=== PATIENT | female | born 1985 | race Asian ===

== ENCOUNTER 2017-10-04 11:30 | Inpatient (IN) ==
[2017-10-04] MEDS ORDERED: Ondansetron 4 MG/2 ML VIAL IVP ONE (12:14)
[2017-10-04] MEDS ORDERED: 0.9 % Sodium Chloride 1,000 ML IVC ONE ×2 (12:14→13:58)
--- NOTE | 2017-10-04 12:15 | Emergency Department Note ---
Disposition Clinical Impression: Sepsis Qualifiers: Sepsis type: sepsis due to unspecified organism Qualified Code(s): A41.9 - Sepsis, unspecified organism UTI (urinary tract infection) Qualifiers: Urinary tract infection type: acute cystitis Hematuria presence: without hematuria Qualified Code(s): N30.00 - Acute cystitis without hematuria Disposition: Admitted As Inpatient Condition: Good Time of Disposition: 14:38 General Adult HPI - General Chief complaint: ED General Medical Stated complaint: fever, weakness, sore throat Time Seen by Provider: 10/04/17 11:51 Source: patient Mode of arrival: ambulatory Limitations: no limitations Nursing Notes Reviewed: Yes Vital Signs Reviewed: Yes - History of Present Illness HPI Narrative: 31-year-old with no significant past medical history presenting to the emergency Department chief complaint of myalgias and fever. Patient states for the past 2 days she has not been feeling well. She woke up this morning with severe diffuse myalgias. She had MAXIMUM TEMPERATURE of 104 at home. Patient did take Advil but did not help relieve her pain or temperature. Patient denies any cough, productive sputum, chest pain or shortness of breath. Denies any abdominal pain, vomiting or urinary symptoms. Patient denies any sick contacts. Pain Scale: 10 - Related Data Home Medications Medication Instructions Recorded Confirmed No Known Home Drugs 10/04/17 10/04/17 Allergies Allergy/AdvReac Type Severity Reaction Status Date / Time No Known Allergies Allergy Verified 10/04/17 14:06 All systems ED: reviewed and negative except as stated. Constitutional: Reports: fever Musculoskeletal: Reports: myalgia Past Medical History - Past Medical History Attestation: Yes The following information was validated with the patient. 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 Absent: scleral icterus, conjunctival injection - ENT ENT exam: mucous membranes dry - Neck Neck exam: Present: normal inspection, full ROM. Absent: tenderness, meningismus - Chest Chest inspection: Present: normal inspection, symmetric chest wall rise. Absent : tenderness, rash - Respiratory Respiratory exam: Present: normal lung sounds bilaterally. Absent: respiratory distress, wheezes - Cardiovascular Cardiovascular exam: Present: normal rhythm, tachycardia, normal heart sounds - Abdominal Exam Abdominal exam: Present: soft, Non-Tender. Absent: distention, guarding, rebound - Extremities Exam Extremities exam: Present: normal inspection, full ROM - Back Exam Back exam: Absent: CVA tenderness (R), CVA tenderness (L) - Neurological Exam Neurological exam: Present: alert, oriented X3 - Psychiatric Psychiatric exam: Present: normal affect, normal mood - Skin Skin exam: Present: warm, intact Course Course Narrative: 31-year-old female presenting to the emergency department with fever and myalgia. Patient's temperature 103 upon arrival. Patient tachycardic at 150 bpm. Other vital signs stable at this time. We will provide her with Tylenol, ibuprofen and complete basic laboratory analysis along with chest x-ray and influenza swab. Patient is alert and oriented 3 in the room. Disposition pending results. Patient agrees with this plan. - Reevaluation(s) Reevaluation #1: Patient's lab has resulted with increased white blood cell count and urinary tract infection. Patient heart rate decreasing well with 2 L of fluid. Patient is alert and oriented 3 in the room. Stable vital signs at this time. We will admit the patient at this time for urosepsis. We will start the patient on Rocephin. Patient agrees with this plan. I spoke with the hospice on-call Dr. Lui who agrees to accept the patient. Vital Signs Temperature 103 F H 10/04/17 11:33 Pulse Rate 150 10/04/17 11:33 Respiratory Rate 18 10/04/17 11:33 Blood Pressure 96/56 10/04/17 11:33 O2 Sat by Pulse Oximetry 97 10/04/17 11:33 Temperature 103 F H 10/04/17 11:33 Pulse Rate 121 10/04/17 13:35 Respiratory Rate 18 10/04/17 13:35 Blood Pressure 104/42 10/04/17 13:35 O2 Sat by Pulse Oximetry 99 10/04/17 13:35 Oxygen Delivery Oxygen Delivery Room Air Medical Decision Making - Lab Data Result diagrams: 10/04/17 12:14 10/04/17 12:14 Lab Results 10/04/17 10/04/17 10/04/17 Range/Units 12:05 12:05 12:14 WBC 17.9 H (4.3-11.1) K/mcL RBC 4.79 (3.82-4.97) M/mcL Hgb 13.3 (11.5-15.4) g/dL Hct 39.9 (35.3-44.9) % MCV 83.3 (83.0-100.0) fL MCH 27.8 L (28.0-33.3) pg MCHC 33.3 (31.6-35.5) g/dL RDW 12.5 (11.5-14.5) % Plt Count 334 (140-400) K/mcL MPV 9.6 (9.4-12.4) fL Immature Gran % 0.7 (0-4) % Seg Neutrophils % 81.9 % Lymphocytes % 11.4 % Monocytes % 5.6 % Eosinophils % 0.1 % Basophils % 0.3 % Neutrophils # 14.6 H (1.6-8.9) K/mcL Lymphocytes # 2.0 (0.6-4.6) K/mcL Monocytes # 1.0 (0.0-1.3) K/mcL Eosinophils # 0.0 (0.0-0.6) K/mcL Basophils # 0.1 (0.0-0.2) K/mcL Sodium (136-145) mEq/L Potassium (3.5-5.1) mEq/L Chloride (98-107) mEq/L Carbon Dioxide (23-29) mEq/L BUN (6-20) mg/dL Creatinine (0.60-1.20) mg/dL Est GFR ( Amer) (> 60) Est GFR (Non-Af Amer) (> 60) BUN/Creatinine Ratio (6-26) Glucose (70-105) mg/dL Calculated Osmolality (280-300) Calcium (8.6-10.3) mg/dL Urine Color Yellow (Yellow) Urine Clarity Cloudy A (Clear) Urine pH 6.0 (5.0-8.0) pH Units Ur Specific [place] 1.017 (1.010-1.025) Urine Protein Trace (Neg-Trace) mg/dL Urine Glucose (UA) Normal (Normal) mg/dL Urine Ketones Trace H (Negative) mg/dL Urine Blood Small H (Negative) Urine Nitrite Negative (Negative) Urine Bilirubin Negative (Negative) Urine Urobilinogen Normal (Normal) mg/dL Ur Leukocyte Esterase Large H (Negative) Urine Microscopic RBC 5-15 H (0-3) per hpf Urine Microscopic WBC TNTC H (0-3) per hpf Ur Squamous Epith Cells Many H (None-Few) per lpf Urine Bacteria None Seen (None-Few) per hpf Hyaline Casts None Seen (None-Few) per lpf Ur Culture Indicated? NO. (NO) Urine Test Negative (Negative) 10/04/17 Range/Units 12:14 WBC (4.3-11.1) K/mcL RBC (3.82-4.97) M/mcL Hgb (11.5-15.4) g/dL Hct (35.3-44.9) % MCV (83.0-100.0) fL MCH (28.0-33.3) pg MCHC (31.6-35.5) g/dL RDW (11.5-14.5) % Plt Count (140-400) K/mcL MPV (9.4-12.4) fL Immature Gran % (0-4) % Seg Neutrophils % % Lymphocytes % % Monocytes % % Eosinophils % % Basophils % % Neutrophils # (1.6-8.9) K/mcL Lymphocytes # (0.6-4.6) K/mcL Monocytes # (0.0-1.3) K/mcL Eosinophils # (0.0-0.6) K/mcL Basophils # (0.0-0.2) K/mcL Sodium 134 L (136-145) mEq/L Potassium 3.3 L (3.5-5.1) mEq/L Chloride 101 (98-107) mEq/L Carbon Dioxide 22 L (23-29) mEq/L BUN 14 (6-20) mg/dL Creatinine 0.78 (0.60-1.20) mg/dL Est GFR ( Amer) > 60 (> 60) Est GFR (Non-Af Amer) > 60 (> 60) BUN/Creatinine Ratio 18 (6-26) Glucose 123 H (70-105) mg/dL Calculated Osmolality 280 (280-300) Calcium 9.0 (8.6-10.3) mg/dL Urine Color (Yellow) Urine Clarity (Clear) Urine pH (5.0-8.0) pH Units Ur Specific [place] (1.010-1.025) Urine Protein (Neg-Trace) mg/dL Urine Glucose (UA) (Normal) mg/dL Urine Ketones (Negative) mg/dL Urine Blood (Negative) Urine Nitrite (Negative) Urine Bilirubin (Negative) Urine Urobilinogen (Normal) mg/dL Ur Leukocyte Esterase (Negative) Urine Microscopic RBC (0-3) per hpf Urine Microscopic WBC (0-3) per hpf Ur Squamous Epith Cells (None-Few) per lpf Urine Bacteria (None-Few) per hpf Hyaline Casts (None-Few) per lpf Ur Culture Indicated? (NO) Urine Test (Negative)
[2017-10-04 12:44] LABS: Basophils # 0.1 K/mcL (0.0-0.2); Basophils % 0.3 %; Eosinophils % 0.1 %; Hematocrit 39.9 % (35.3-44.9); Hemoglobin 13.3 g/dL (11.5-15.4); Immature Granulocytes % 0.7 % (0-4); Lymphocytes % 11.4 %; Mean Corpuscular HGB Conc 33.3 g/dL (31.6-35.5); Mean Corpuscular Hemoglobin 27.8 pg (28.0-33.3); Mean Corpuscular Volume 83.3 fL (83.0-100.0); Mean Platelet Volume 9.6 fL (9.4-12.4); Monocytes % 5.6 %; Neutrophils # 14.6 K/mcL (1.6-8.9); Platelet Count 334 K/mcL (140-400); Red Blood Count 4.79 M/mcL (3.82-4.97); Red Cell Distribution Width 12.5 % (11.5-14.5); Segmented Neutrophils % 81.9 %
[2017-10-04 12:45] LABS: BUN/Creatinine Ratio 18 (6-26); Blood Urea Nitrogen 14 mg/dL (6-20); Carbon Dioxide 22 mEq/L (23-29); Chloride 101 mEq/L (98-107); Glucose 123 mg/dL (70-105); Osmolality,Calculated 280 (280-300); Potassium 3.3 mEq/L (3.5-5.1); Sodium 134 mEq/L (136-145); eGFR For African Americans > 60 (> 60); eGFR For Non-African Americans > 60 (> 60)
[2017-10-04 12:51] LABS: Bilirubin,Urine Negative (Negative); Blood,Urine Small (Negative); Clarity,Urine Cloudy (Clear); Color,Urine Yellow (Yellow); Glucose,Urine (UA) Normal (Normal); Ketones,Urine Trace mg/dL (Negative); Leukocyte Esterase,Urine Large (Negative); Nitrite,Urine Negative (Negative); Protein,Urine Trace mg/dL (Neg-Trace); Specific Gravity,Urine 1.017 (1.010-1.025); Urobilinogen,Urine Normal (Normal)
[2017-10-04] MEDS ORDERED: Ibuprofen 600 MG TABLET PO ONE (12:52)
[2017-10-04 12:53] LABS: Bacteria,Urine None Seen per hpf (None-Few); Hyaline Casts,Urine None Seen per lpf (None-Few); Squamous Epithelial Cell,Urine Many per lpf (None-Few); WBC,Urine TNTC per hpf (0-3)
[2017-10-04] MEDS ORDERED: cefTRIAXone 1,000 MG in Water for inj. (sterile) 20 ML 10 ML IVP ONE (13:43)
--- NOTE | 2017-10-04 13:45 | Emergency Department Note ---
START Narrative - START START: I examined this patient and my medical decision-making was reviewed with the Resident Physician. I agree with the documented findings, disposition and treatment plan as described except to the extent set forth below. 31-year-old female presents emergency room for fevers and myalgias. Patient is found to have a bad urinary tract infection. I am concerned that she is getting septic. She is tachycardic with a fever of 103 with an elevated respiratory rate. She definitely meet SIRS criteria. We have ordered some IV fluids, Rocephin, antipyretics. We will need to be admitted for this. Awaiting flu swab results. White count elevation. Critical care time of 35 minutes spent in medical management of impending infection systemically.
[2017-10-04] MEDS ORDERED: *HR* HYDROcodone/Acet 5/325 mg TABLET PO PRN (16:05)
[2017-10-04] MEDS ORDERED: Naloxone 0.4 MG/ML INJ IVP PRN (16:05)
[2017-10-04] MEDS ORDERED: Acetaminophen 325 MG TABLET PO PRN (16:05)
[2017-10-04] MEDS ORDERED: *HR* Promethazine 25 MG/ML VIAL IVP PRN (16:09)
[2017-10-04] MEDS ORDERED: Acetaminophen 650 MG RECTAL SUPP RC PRN (20:24)
[2017-10-04] MEDS: 0.9 % Sodium Chloride 1,000 ML IVC SCH (20:46)
[2017-10-04 21:18] LABS: Adenovirus Not Detected (Not Detect); Bordetella Pertussis Not Detected (Not Detect); Chlamydophila pneumoniae Not Detected (Not Detect); Coronavirus 229E Not Detected (Not Detect); Coronavirus HKU1 Not Detected (Not Detect); Coronavirus NL63 Not Detected (Not Detect); Coronavirus OC43 Not Detected (Not Detect); Human Metapneumovirus Not Detected (Not Detect); Human Rhinovirus/Enterovirus Not Detected (Not Detect); Influenza A Subtype 2009 H1 Not Detected (Not Detect); Influenza A Untypeable Not Detected (Not Detect); Influenza B Not Detected (Not Detect); Mycoplasma pneumoniae Not Detected (Not Detect); Parainfluenza Virus 1 Not Detected (Not Detect); Parainfluenza Virus 2 Not Detected (Not Detect); Parainfluenza Virus 3 Not Detected (Not Detect); Parainfluenza Virus 4 Not Detected (Not Detect); Respiratory Syncytial Virus Not Detected (Not Detect)
[2017-10-04] MEDS: Ibuprofen 400 MG TABLET PO PRN (23:26)
--- NOTE | 2017-10-04 23:46 | Event Note ---
Date of Encounter: 10/04/17 Time of Encounter: 18:46 I examined this patient and my medical decision-making was reviewed with the Nurse Practitioner. I agree with the documented findings, disposition and treatment plan as described except to the extent set forth below. Will obtain retroperitoneal ultrasound in the case that this is complicated UTI Continue Vancomycin and Zosyn Patient complaining of sore throat, will get cultures.
--- NOTE | 2017-10-05 01:20 | Internal Med History&Physical ---
Date of Encounter: 10/04/17 Time of Encounter: 15:30 Assessment and Plan (1) Sepsis Current visit: Yes Status: Acute Acute sepsis criteria w/WBC of 17.9, HR of 150, temp of 103F. U/A indicative for possible UTI. Pt. reports 2 days of sx: fever, chills, sore throat, dizziness, weakness. Blood cultures x 2 ordered. Throat culture ordered. Respiratory infection panel ordered. CXR today shows no acute abnormality. Pt. received 0.9 NS IV fluid boluses x2 w/continuation of 100 mL/HR. Stat lactic acid and timed lactic acids ordered. IVPB Rocephin ordered in ED. Will discontinue Rocephin and administer IVPB vancomycin w/pharmacy dosing and Zosyn 3.375 gm Q8HR for infection coverage. Will adjust abx coverage based on culture results. Tylenol RC 650 Q6HR ordered and will be alternated w/ordered Ibuprofen for fever and pain control. Continuous cardiac telemetry. Monitor pt. and f/u labs. Supplemental O2 w/SpO2 monitoring ordered PRN. Falls/safety precautions d/ t dizziness/weakness. Pt. discussed w/Dr. Lui who agrees w/plan of care. Pt. is high risk for further morbidity and infection d/t current sepsis criteria and hx of sx for two days w/o resolve. Inpatient. Qualifiers: Sepsis type: sepsis due to unspecified organism Qualified Code(s): A41.9 - Sepsis, unspecified organism (2) UTI (urinary tract infection) Current visit: Yes Status: Acute Acute UTI. U/A shows leukocyte esterase and WBCs TNTC. Influenza swab negative. Respiratory infection panel negative. Pt. given ceftriaxone in ED IVPB. Will discontinue Rocephin and add IVPB vancomycin w/pharmacy dosing and Zosyn 3.375 gm Q8HR for infection coverage. Will adjust abx coverage based on blood cultures. Monitor I&O. Retroperitoneal US ordered to r/o complicated UTI. Qualifiers: Urinary tract infection type: acute cystitis Hematuria presence: without hematuria Qualified Code(s): N30.00 - Acute cystitis without hematuria (3) Dizziness Current visit: Yes Status: Acute Acute dizziness and weakness for the past 2 days r/t current sx and fever. Falls /safety precautions, up with assist, bed rest w/bathroom privileges w/assist only. (4) DVT prophylaxis Current visit: Yes Status: Acute Lovenox 40 mg SQ 0600 for DVT prophylaxis. Monitor pt. for signs of bleeding. Internal Medicine - H&P: HPI Chief complaint: Fever/Weakness/Sore Throat Admitted From: Emergency Dept Plans for Post Hospital Care: Home History of present illness: Ms. Wharton is a 31 year old female w/no medical hx presents from the ED w/chief complaint of fever of 104F at home, chills, sore throat, and weakness that began yesterday. Pt. reports she has not been feeling well for two days w/ muscle aches and pains and fast HR. States Advil did not help w/her fever and chills. Pt. denies being sick prior to this or having sick contacts, nausea, vomiting, cough, changes in vision, headache, chest pain, palpitations, abdominal pain, diarrhea, constipation, SOB, pre-syncope, or syncope. Past Med Surg Social Fam HX - Past Medical History Source: patient, old records reviewed Medical history: no medical history Psychiatric history: no psych history - Past Surgical History Surgical History: cholecystectomy - Social History Smoking Status: Never smoker Smokeless Tobacco Status: No Alcohol use: none Drug use: none Current living situation: Home Activity Level: Independent ambulation, Very active Recent Out of Country Travel Within the Last 8 Weeks: No Exposure or Possible Exposure to Illness During Travel: No - Family History Father Race: / Living Status: Still Living Hx Family Medical Disorders: No Mother Race: / Living Status: Still Living Hx Family Respiratory Disorders: Yes (Lung problems) Brother Race: / Living Status: Still Living Hx Family Medical Disorders: No Sister Race: / Living Status: Still Living Hx Family Medical Disorders: No Internal Medicine - H&P: Meds No Known Home Drugs 10/04/17 [History] 3 Allergy/AdvReac Type Severity Reaction Status Date / Time No Known Allergies Allergy Verified 10/04/17 14:06 All Systems PM: A 10-system review of systems was performed and is negative for pertinent findings except as documented above in the HPI. - Constitutional Constitutional: as per HPI, chills, fever(s), weakness, no night sweats - EENT Eyes: no change in vision, no discharge, no pain, no photophobia Ears: no ear discharge, no ear pain, no tinnitus Nose, mouth and throat: no dysphagia, no nasal discharge, no neck pain, no sore throat - Breasts Breasts: as per HPI - Cardiovascular Cardiovascular ROS IM: as per HPI, other (Fast HR), no chest pain, no diaphoresis, no dyspnea, no lightheadedness, no palpitations, no syncope - Respiratory Respiratory: no cough, no dyspnea, no wheezing, no excessive phlegm production - Gastrointestinal Gastrointestinal: no abdominal pain, no diarrhea, no hematemesis, no hematochezia, no melena, no nausea, no vomiting - Genitourinary Genitourinary: no change in urinary stream, no dysuria, no flank pain, no hematuria Menstruation: as per HPI - Musculoskeletal Musculoskeletal ROS IM: myalgias, no numbness, no tingling - Integumentary Integumentary IM: no rash, no unusual bruising - Neurological Neurological ROS: dizziness, weakness, no confusion, no convulsions, no focal weakness, no numbness, no tingling, no tremor(s) - Psychiatric Psychiatric: as per HPI - Endocrine Endocrine IM: as per HPI - Hematologic/Lymphatic Hematologic/Lymphatic: no easy bruising - Allergic/Immunologic Allergic/Immunologic: as per HPI - Constitutional Vitals: Temp Pulse Resp BP Pulse Ox 101.2 F H 122 17 99/60 93 10/04/17 23:11 10/04/17 23:11 10/04/17 23:11 10/04/17 23:11 10/04/17 23:11 General appearance: Present: cooperative, mild distress, A&O X 3, pleasant, obese, answers questions appropriately - Head Head exam: Present: atraumatic, normocephalic - Eye Eye exam: Present: PERRL, conjuntiva pink, sclera anicteric Pupils: Present: PERRL - ENT ENT exam: Present: normal exam - Neck Neck exam general surgery: Present: normal inspection, supple, trachea midline. Absent: lymphadenopathy - Respiratory Respiratory exam: Present: CTAB, tachypnea. Absent: accessory muscle use, rales , rhonchi, wheezes - Cardiovascular Cardiovascular exam: Present: +S1, +S2, tachycardia. Absent: diastolic murmur, gallop, rubs, systolic murmur - GI/Abdominal GI/Abdominal exam: Present: normal bowel sounds, soft, no peritoneal signs. Absent: distended, tenderness - Rectal Rectal exam: Present: deferred - Additional comments: exam deferred. - Extremities Exam Extremities exam: Present: warm, radial pulses palpable and symmetrical. Absent : calf tenderness, cyanotic, pedal edema - Back Exam Back exam: Present: normal inspection - Neurological Exam Neurological exam: Present: CN II-XII intact, oriented X3, no focal deficits. Absent: pronater drift, facial droop, speech deficit - Psychiatric Psychiatric exam: Present: normal affect, normal mood - Skin Skin exam: Present: dry, intact Internal Med - H&P Results - Labs CBC & Chem 7: 10/04/17 12:14 10/04/17 12:14 - Impressions ITS Impressions Retroperitoneum Ultrasound 10/04/17 20:49 IMPRESSION: Unremarkable ultrasound of the kidneys and urinary bladder. D/ / Garry Raya MD / Garry Raya MD Interpreting Provider: Garry Raya MD - Diagnostic Studies Chest x-ray Additional comments: Impressions Chest X-Ray 10/04/17 12:06 IMPRESSION: No acute abnormality. D/ / Frank Guido MD / Frank Guido MD Interpreting Provider: Frank Guido MD Other Images Additional comments: Impressions Retroperitoneum Ultrasound 10/04/17 20:49
[2017-10-05] MEDS: 0.9 % Sodium Chloride 1,000 ML IVC SCH ×2 (03:05→12:18)
[2017-10-05 04:20] LABS: Basophils % 0.3 %; Eosinophils # 0.1 K/mcL (0.0-0.6); Eosinophils % 0.4 %; Hematocrit 35.1 % (35.3-44.9); Immature Granulocytes % 0.6 % (0-4); Lymphocytes # 2.6 K/mcL (0.6-4.6); Lymphocytes % 18.8 %; Mean Corpuscular HGB Conc 32.5 g/dL (31.6-35.5); Mean Corpuscular Hemoglobin 27.7 pg (28.0-33.3); Mean Corpuscular Volume 85.2 fL (83.0-100.0); Mean Platelet Volume 9.6 fL (9.4-12.4); Monocytes % 7.5 %; Neutrophils # 9.9 K/mcL (1.6-8.9); Platelet Count 247 K/mcL (140-400); Red Blood Count 4.12 M/mcL (3.82-4.97); Red Cell Distribution Width 12.7 % (11.5-14.5); Segmented Neutrophils % 72.4 %
[2017-10-05 04:27] LABS: Hemoglobin 11.4 g/dL (11.5-15.4)
[2017-10-05 04:39] LABS: Alanine Aminotransferase 18 Units/L (7-52); Albumin 3.4 g/dL (3.5-5.7); Alkaline Phosphatase 73 Units/L (34-104); Aspartate Amino Transferase 18 Units/L (13-39); BUN/Creatinine Ratio 15 (6-26); Bilirubin,Total 0.5 mg/dL (0.3-1.0); Blood Urea Nitrogen 10 mg/dL (6-20); Calcium 7.9 mg/dL (8.6-10.3); Carbon Dioxide 21 mEq/L (23-29); Chloride 107 mEq/L (98-107); Chol/HDL Ratio 2.9 (0-4.9); Cholesterol 120 mg/dL (< 200); Globulin 3.4 g/dL (2.4-3.5); Glucose 102 mg/dL (70-105); HDL Cholesterol 41 mg/dL (40-59); LDL Cholesterol,Calculated 63 mg/dL (0-99); Magnesium 1.9 mg/dL (1.6-2.6); Osmolality,Calculated 285 (280-300); Sodium 138 mEq/L (136-145); Total Protein 6.8 g/dL (6.4-8.9); Triglycerides 80 mg/dL (< 150); eGFR For African Americans > 60 (> 60); eGFR For Non-African Americans > 60 (> 60)
[2017-10-05] MEDS: *HR* Enoxaparin 40 MG/0.4 ML SYRINGE SQ SCH (05:49)
[2017-10-05] MEDS: Piperacillin/Tazobactam 3.375 GM in 0.9 % Sodium Chloride Mini Bag 100 ML IVPB SCH ×4 (05:49→20:55)
[2017-10-05 09:15] LABS: Estimated Average Glucose 114 mg/dl; Hemoglobin A1C 5.6 %
[2017-10-05] MEDS ORDERED: Famotidine 20 MG/2 ML VIAL IVP ONE ×2 (11:14→11:19)
--- NOTE | 2017-10-05 17:44 | Internal Med Progress Note ---
Date of Encounter: 10/05/17 Time of Encounter: 11:40 - Assessment and plan (1) Dizziness Current Visit: Yes Status: Acute Assessment and plan: She reports dizziness or weakness for 2 days prior to arrival. Weekly secondary to fever and urinary tract infection. Patient status has improved today. Continue to monitor for safety and falls. (2) Sepsis Current Visit: Yes Status: Acute Assessment and plan: Patient with leukocytosis, patient is hypotensive currently but blood pressure is been stable throughout the day. She has no tachycardia and no fever. Sepsis resolved. Continue to monitor vital signs patient condition. Flu swab was negative, respiratory infectious panel was negative. For urinary tract infection we will continue IV vancomycin and Zosyn. We will adjust anabiotic based on cultures when they return. Qualifiers: Sepsis type: sepsis due to unspecified organism Qualified Code(s): A41.9 - Sepsis, unspecified organism (3) UTI (urinary tract infection) Current Visit: Yes Status: Acute Assessment and plan: Urine indicative of urinary tract infection. Due to sepsis, patient was treated with IV vancomycin and Zosyn. We will narrow antibiotics as cultures return. Qualifiers: Urinary tract infection type: acute cystitis Hematuria presence: without hematuria Qualified Code(s): N30.00 - Acute cystitis without hematuria (4) Hypotension Current Visit: Yes Status: Resolved Assessment and plan: Resolved. Most likely secondary to sepsis. Continue to monitor patient's vital signs. Qualifiers: Hypotension type: unspecified hypotension type Qualified Code(s): I95.9 - Hypotension, unspecified (5) DVT prophylaxis Current Visit: Yes Status: Acute Assessment and plan: Lovenox subcutaneous. - Time Spent With Patient less than 15 minutes - Subjective Interval history: Patient was seen and assessed@11:40 AM. Patient has daughter and the bed with her. is at bedside. Plan of care explained patient, she and verbalized understanding. She denies abd pain, n/v/d, diaphoresis, headache, blurred vision, or chest pain. - Constitutional Vitals: Temp Pulse Resp BP Pulse Ox 99.6 F 91 18 98/62 100 10/05/17 16:09 10/05/17 16:09 10/05/17 16:09 10/05/17 16:10/05/17 16:09 General appearance: Present: cooperative, mild distress, A&O X 3, pleasant, obese, answers questions appropriately - Head Head exam: Present: atraumatic, normal inspection, normocephalic - Eye Eye exam: Present: normal appearance, conjuntiva pink, sclera anicteric - Neck Neck exam general surgery: Present: supple, trachea midline. Absent: lymphadenopathy, tenderness - Respiratory Respiratory exam: Present: CTAB. Absent: accessory muscle use, chest wall tenderness, rales, respiratory distress, rhonchi, wheezes - Cardiovascular Cardiovascular exam: Present: RRR, +S1, +S2. Absent: diastolic murmur, gallop, rubs, systolic murmur - GI/Abdominal GI/Abdominal exam: Present: normal bowel sounds, soft. Absent: distended, hepatomegaly, tenderness - Extremities Exam Extremities exam: Present: normal capillary refill, normal inspection, warm, radial pulses palpable and symmetrical. Absent: calf tenderness, cyanotic, pedal edema, tenderness - Neurological Exam Neurological exam: Present: alert, oriented X3, no focal deficits. Absent: facial droop, speech deficit - Skin Skin exam: Present: dry, intact, normal color, warm. Absent: rash Internal Medicine: Result - Labs CBC & Chem 7: 10/05/17 03:32 18 03:32 Consult Discharge Plan - Plan Referrals: Grace Medellin, COATING OPERATOR [Primary Care Provider] -
[2017-10-05] MEDS: Ibuprofen 400 MG TABLET PO PRN (20:54)
[2017-10-06] MEDS: *HR* Enoxaparin 40 MG/0.4 ML SYRINGE SQ SCH (05:09)
[2017-10-06] MEDS: 0.9 % Sodium Chloride 1,000 ML IVC SCH ×3 (05:09→21:40)
[2017-10-06] MEDS: Piperacillin/Tazobactam 3.375 GM in 0.9 % Sodium Chloride Mini Bag 100 ML IVPB SCH ×3 (05:10→21:40)
[2017-10-06 06:03] LABS: Basophils % 0.3 %; Eosinophils # 0.3 K/mcL (0.0-0.6); Eosinophils % 3.3 %; Hematocrit 33.7 % (35.3-44.9); Hemoglobin 11.1 g/dL (11.5-15.4); Immature Granulocytes % 0.2 % (0-4); Lymphocytes # 3.3 K/mcL (0.6-4.6); Lymphocytes % 33.2 %; Mean Corpuscular HGB Conc 32.9 g/dL (31.6-35.5); Mean Corpuscular Volume 84.9 fL (83.0-100.0); Mean Platelet Volume 9.8 fL (9.4-12.4); Monocytes # 0.8 K/mcL (0.0-1.3); Monocytes % 7.8 %; Neutrophils # 5.4 K/mcL (1.6-8.9); Platelet Count 247 K/mcL (140-400); Red Blood Count 3.97 M/mcL (3.82-4.97); Red Cell Distribution Width 12.8 % (11.5-14.5); Segmented Neutrophils % 55.2 %
[2017-10-06 06:10] LABS: Alanine Aminotransferase 29 Units/L (7-52); Albumin 3.8 g/dL (3.5-5.7); Albumin/Globulin Ratio 1.1 (1.1-2.2); Alkaline Phosphatase 73 Units/L (34-104); Aspartate Amino Transferase 22 Units/L (13-39); BUN/Creatinine Ratio 19 (6-26); Bilirubin,Total 0.3 mg/dL (0.3-1.0); Blood Urea Nitrogen 10 mg/dL (6-20); Calcium 8.8 mg/dL (8.6-10.3); Carbon Dioxide 25 mEq/L (23-29); Chloride 109 mEq/L (98-107); Globulin 3.6 g/dL (2.4-3.5); Glucose 96 mg/dL (70-105); Osmolality,Calculated 291 (280-300); Potassium 3.5 mEq/L (3.5-5.1); Sodium 141 mEq/L (136-145); Total Protein 7.4 g/dL (6.4-8.9); eGFR For African Americans > 60 (> 60); eGFR For Non-African Americans > 60 (> 60)
--- NOTE | 2017-10-06 11:10 | Infectious Disease Consult ---
Date of Encounter: 10/06/17 Time of Encounter: 09:08 Assessment and Plan (1) Sepsis Status: Acute Assessment and plan: Patient was admitted by the hospitalist service with Acute sepsis criteria w/ WBC of 17.9, HR of 150, temp of 103F. U/A indicative for possible UTI. - Sepsis improving, WBC has normalize, heart rate appropriate, afebrile since 7: 00 last evening. - Source is likely acute pharyngitis with tonsillitis. - Urine source is contaminated with large amount of squamous cells, patient denies urinary symptoms. 10/04: Blood cultures preliminary negative 10/04: Influenza swab negative 10/04: Rest or infectious panel negative Qualifiers: Sepsis type: sepsis due to unspecified organism Qualified Code(s): A41.9 - Sepsis, unspecified organism (2) Acute bacterial pharyngitis Status: Acute Assessment and plan: Patient presented with fevers, chills, sore throat and body aches. - Clinical exam demonstrates acute pharyngitis with tonsillitis - Centor Criteria: 4 (51-53% likelihood of strep throat) 31-year-old female with tonsillar exudate and swelling, tender swollen anterior cervical lymph nodes, temperature greater than 38.0 Celsius, absent cough - Current antibiotic Zosyn 3.375 Q8hrs (of note patient is breast feeding) - Symptoms have improved - Rapid strep ordered - Recommend oral antibiotic change to: (3) UTI (urinary tract infection) Status: Acute Assessment and plan: Patient noted with sepsis criteria and concern for UTI - 10/04: Urinalysis was collected but demonstrated cloudy urine with trace ketones, small urine blood, large leukocyte Esterace, 5-15 microscopic RBC, WBC TNTC, many squamous cells. No urine culture was indicated. - Retroperitoneal ultrasound without concerning findings. Antibiotics: - Rocephin 1 dose 10/04 - Vancomycin 1 dose 10/04 - Zosyn 2 doses 10/05-10/06 Would be considered uncomplicated UTI. Patient currently without UTI symptoms. Qualifiers: Urinary tract infection type: acute cystitis Hematuria presence: without hematuria Qualified Code(s): N30.00 - Acute cystitis without hematuria Infectious Disease HPI - Data of Consult Patient: new to practice Consult date: 10/06/17 Requesting Physician: Seven Sykes Primary Care Provider: Grace Medellin CNP - Consult Narrative Reason for consult: Treatment of fever and unknown infection History of present illness: 31-year-old female presented to the emergency department on 10/04/2017 with fevers, chills, body aches and a sore throat was admitted for possible UTI. Infectious disease consult for unknown source of infection. Vitals her presentation: Temperature 103, heart rate 150, respiratory rate 18, blood pressure 96/56, oxygen saturations 97% on room air Initial labs: WBC 17.9, hemoglobin 13.3, hematocrit 39.9, platelets 334, neutrophil #14.6, segmented neutrophil percent 81.9, sodium 134, potassium 3.3, bicarbonate 22, chloride 101, creatinine 0.7 eighths, BUN 14, glucose 123, GFR > 60. Mrs. Wharton developed sore throat starting on Monday with symptoms of fevers , chills, body aches. Symptoms did not relieve igdw-wyd-hmcvpty Advil, she had difficulty with swallowing and subjective fever up to 104. She felt that her symptoms worsened overnight and she was not improving on Monday which her noticed that her face was red and she looked very ill. Patient denies any cough, productive sputum, chest pain or shortness of breath. Denies any abdominal pain, vomiting or urinary symptoms. Patient denies any sick contacts. She presented to the emergency department and was provide her with Tylenol, ibuprofen and complete basic laboratory analysis along with chest x- ray and influenza swab. Chest x-ray was without acute findings, influenza swab negative, infectious restaurant panel negative. Urinalysis was collected but demonstrated cloudy urine with trace ketones, small urine blood, large leukocyte Estrace, 5-15 microscopic RBC, WBC TNTC, many squamous cells. No urine culture was indicated. Initially given a dose of IV Rocephin. Patient was admitted by the hospitalist service with Acute sepsis criteria w/WBC of 17.9 , HR of 150, temp of 103F. U/A indicative for possible UTI. Throat culture was ordered 10/04. Orders were placed for discontinuation of IV Rocephin, start IVPB vancomycin and Zosyn 3.375 Q8hrs. one dose of IV vancomycin was given and then discontinued; patient is breast-feeding. She has received Zosyn IV on October 05 and . Upon evaluation today she continues to complain of sore throat, difficulty swallowing but denies any cough, productive sputum, chest pain or shortness of breath. Denies any abdominal pain, vomiting or urinary symptoms. When asked if she ever had burning with urination she states that maybe she had some urinary discomfort on Monday but otherwise has not noticed any foul odor, change in color/blood of her urine. She denies feeling feverish since yesterday evening, denies any current chills or diaphoresis. She continues of difficulty swallowing food with her sore throat. When reviewing recent hospitalizations or evaluations she does mention she had a Pap smear on September 21 and had colitis the following day but denies any vaginal discharge, burning or foul odor. She denies any recent illnesses, sick contacts, recent history of strep throats or other known infections. Todays vitals: Temp 97.6, heart rate 68, respirations 18, blood pressure 98/64 , oxygen saturation 98% on room air Todays labs: WBC 9.8, hemoglobin 11.1, hematocrit 33.7, platelets 247, segmented neutrophils 55%, sodium 141, potassium 3.5, chloride 109, bicarbonate 25, BUN 10, creatinine 0.52, GFR > 60. CC: Seven Sykes Past Med Surg Social Fam HX - Past Medical History Medical history: no medical history Psychiatric history: no psych history - Past Surgical History Surgical History: cholecystectomy - Social History Smoking Status: Never smoker Smokeless Tobacco Status: No Alcohol use: none Drug use: none - Family History Father Race: / Living Status: Still Living Hx Family Medical Disorders: No Mother Race: / Living Status: Still Living Hx Family Respiratory Disorders: Yes (Lung problems) Brother Race: / Living Status: Still Living Hx Family Medical Disorders: No Sister Race: / Living Status: Still Living Hx Family Medical Disorders: No Infectious Disease-CN:Meds No Known Home Drugs 10/04/17 [History] 3 Allergy/AdvReac Type Severity Reaction Status Date / Time No Known Allergies Allergy Verified 10/04/17 14:06 - Constitutional Constitutional: Present: chills (Upon admission), excessive sweating (Upon admission), fever(s) (Upon admission), malaise (Upon admission). Absent: headache(s), weakness - EENT Eyes: Absent: diplopia Nose, mouth and throat: Present: dental pain (Chronic), dizziness (Currently), headache(s), sore throat. Absent: halitosis, mouth lesions - Cardiovascular Cardiovascular: Present: diaphoresis, rapid heart rate (Upon admission). Absent : chest pain, slow heart rate, syncope - Respiratory Respiratory: Absent: cough, dyspnea, wheezing, chest congestion, excessive phlegm production, change in phlegm color - Gastrointestinal Gastrointestinal: Absent: constipation, diarrhea, nausea, vomiting - Musculoskeletal Musculoskeletal: Present: muscle cramps - Neurological Neurological: Present: dizziness Exam - Constitutional Vitals: Temp Pulse Resp BP Pulse Ox 97.6 F 68 18 98/64 98 10/06/17 07:24 10/06/17 07:24 10/06/17 07:24 10/06/17 07:24 10/06/17 07:24 - Head Head exam: Present: atraumatic, normocephalic - Eye Eye exam: Present: EOMI, normal appearance, PERRL - ENT ENT exam: Present: mucous membranes moist Additional comments: Posterior oropharynx demonstrates erythema, tonsillitis with white pus discharge bilateral. Patient has poor dentition with multiple decaying and broken teeth no signs of gum abscess. - Neck Neck exam: Present: lymphadenopathy (Submandibular), tenderness - Respiratory Respiratory exam: Present: CTAB - Cardiovascular Cardiovascular exam: Present: RRR, +S1, +S2 - GI/Abdominal GI/Abdominal exam: Present: normal bowel sounds, soft - Extremities Exam Extremities exam: Present: normal inspection Infectious Disease CN: Results - Labs CBC & Chem 7: 10/06/17 05:01 10/06/17 05:01 Serology: Serology 10/05/17 Range/Units 21:00 Nasal Screen MRSA (PCR) Negative (Negative) Consult Discharge Plan - Plan Referrals: Grace Medellin, BIOLOGY SPECIALIST [Primary Care Provider] - - Attending Attestation I examined this patient and my medical decision-making was reviewed with the Resident Physician. I agree with the documented findings, disposition and treatment plan as described except to the extent set forth below. This is an addendum to original report dictated by resident physician. Please refer to residents note for full detail. Patient is a 31-year-old woman admitted to [facility] on 10/05/2017 with fevers weakness and a sore throat, we are consulted on October 06 for persistent fever. Patient tells me that she was in usual state of health on Monday prior to admission. On Monday morning she was totally fine and Monday afternoon she started having acute sudden onset sore throat and fever. Patient had associated symptoms including dizziness some dyspnea on exertion and diffuse arthralgia. Patient took her temperature at home and she had a 104 9 fever. Patient decided to come to the ER for evaluation. On further questioning patient was born in [facility] and immigrated to the [facility] and 2007 and had another visit to the facility in 2010. Patient denies history of STD in the past, denies history of HIV denies history of hepatitis in the past. Patient has 3 children ages 86 and 5 months old. She had normal delivery and all 3 of them.Patient does neverused tampons and use sonly pads but shehasnothadherperiodsinceshehasbeenbreast-feeding. Patient tells me that none of her children has been sick. No URI symptoms. 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 Patient denies any smoking drinking or IV drug use. Review of system was negative other for what is mentioned in history of present illness. Physical exam today reveals some mild erythema with small exudate on the tonsils. Neck exam is positive for a couple of reactive lymph nodes behind the ear but no masses in the neck. Patient does not have any stridor and uvula is midline no signs of pharyngeal abscess. Since admission, patient has been febrile with a MAXIMUM TEMPERATURE of 103.1 Fahrenheit patient has also been tachycardic with a heart rate as high as 150 and a presenting WBC of 17.9 with 82% neutrophils and no bands. A urinalysis appears to be contaminated, MRSA screen was done and came back negative, a respiratory infectious panel was performed and it came back negative. Influenza A and B antigen was also negative. Blood cultures were obtained 2 and are no growth to date. Streptococcus a rapid antigen was also done and it came back negative. A chest x-ray was done and showed no acute process. An ultrasound of the kidney and urinary bladder was done yesterday and it was unremarkable. Patient was started on broad-spectrum antibiotics and we were consulted to evaluate the patient and make further recommendations. At this point I am not sure if this is bacterial or viral. Viral is higher on my differential diagnosis even though the history infectious panel has been negative. Patient has been on antibiotics. Check HIV status discussed with the patient and she is okay with that May switch the patient to Augmentin to finish a 10 day course No further recommendations at this point
[2017-10-06] MEDS ORDERED: Aminoglycoside Consult 1 EACH MC ONE (11:51)
[2017-10-06 16:09] LABS: HIV-1&2 Antibody & p24 Ag Nonreactive (Nonreactive); Hepatitis A Antibody IgM Nonreactive (Nonreactive); Hepatitis B Core IgM Nonreactive (Nonreactive); Hepatitis B Surface Antigen Nonreactive (Nonreactive); Hepatitis C Virus Antibody Nonreactive (Nonreactive)
--- NOTE | 2017-10-06 17:34 | Internal Med Progress Note ---
Date of Encounter: 10/06/17 Time of Encounter: 09:10 - Assessment and plan (1) Dizziness Current Visit: Yes Status: Acute Assessment and plan: Denies dizziness. Pt states that she feels better today. (2) Sepsis Current Visit: Yes Status: Acute Assessment and plan: WBC have returned to baseline, but she is still having intermittent fevers and some tachycardia. Pt is hypotensive, as well, but this is most likely her baseline. ID consultation suggests pharyngitis, strep negative. Vancomycin and Zosyn have been discontinued. Treat symptoms prn. Qualifiers: Sepsis type: sepsis due to unspecified organism Qualified Code(s): A41.9 - Sepsis, unspecified organism (3) UTI (urinary tract infection) Current Visit: Yes Status: Acute Assessment and plan: Urine not cultured, pt denies urinary symptoms any longer, reports that dysuria has resolved. Retroperitoneal US unremarkable. Antibiotics have been discontinued, repeat urine tonight. Qualifiers: Urinary tract infection type: acute cystitis Hematuria presence: without hematuria Qualified Code(s): N30.00 - Acute cystitis without hematuria (4) Hypotension Current Visit: Yes Status: Chronic Assessment and plan: The patient's systolic blood pressure high 90s or around 100. Assessment most likely patient's baseline. We will continue to monitor. Qualifiers: Hypotension type: unspecified hypotension type Qualified Code(s): I95.9 - Hypotension, unspecified (5) DVT prophylaxis Current Visit: Yes Status: Acute Assessment and plan: Lovenox subcutaneous daily. - Time Spent With Patient less than 15 minutes - Subjective Interval history: Patient was seen and assessed@0910 AM. Patient has daughter and the bed with her. is at bedside. Plan of care explained patient, she and verbalized understanding. She denies abd pain, n/v/d, diaphoresis, headache, blurred vision, or chest pain. I had a lengthy discussion with pt yesterday regarding and iv Vanco and Zosyn. I discussed both medications with pharmacy and they recommended against it, pt was made aware and verbalized understanding. Today during ROS, pt denied any urinary symptoms, no cough, URI symptoms, sore throat, ear pain, or rhinorrhea and denies sick contacts, unclear etiology for fever and sepsis, pt and aware of ID consultation. - Constitutional Vitals: Temp Pulse Resp BP Pulse Ox 98.7 F 82 16 96/61 99 10/06/17 16:10 10/06/17 16:10 10/06/17 16:10 10/06/17 16:10 10/06/17 16:10 General appearance: Present: cooperative, mild distress, A&O X 3, pleasant, no acute distress, obese, answers questions appropriately - Head Head exam: Present: atraumatic, normal inspection, normocephalic - Eye Eye exam: Present: conjuntiva pink, sclera anicteric - Neck Neck exam general surgery: Present: supple, trachea midline - Respiratory Respiratory exam: Present: CTAB. Absent: accessory muscle use, chest wall tenderness, decreased breath sounds, prolonged expiratory phase, rales, rhonchi , wheezes - Cardiovascular Cardiovascular exam: Present: RRR, +S1, +S2. Absent: diastolic murmur, gallop, rubs, systolic murmur - GI/Abdominal GI/Abdominal exam: Present: normal bowel sounds, soft, no peritoneal signs. Absent: distended, hepatomegaly, tenderness - Extremities Exam Extremities exam: Present: normal capillary refill, normal inspection, warm, radial pulses palpable and symmetrical. Absent: calf tenderness, cyanotic, pedal edema, tenderness - Neurological Exam Neurological exam: Present: alert, oriented X3, no focal deficits. Absent: facial droop, speech deficit - Skin Skin exam: Present: dry, intact, normal color, warm. Absent: rash Internal Medicine: Result - Labs CBC & Chem 7: 10/06/17 05:01 10/06/17 05:01 Labs: Short CBC 10/06/17 Range/Units 05:01 WBC 9.8 (4.3-11.1) K/mcL Hgb 11.1 L (11.5-15.4) g/dL Hct 33.7 L (35.3-44.9) % Plt Count 247 (140-400) K/mcL Neutrophils # 5.4 (1.6-8.9) K/mcL BMP 10/06/17 05:01 Sodium 141 Potassium 3.5 Chloride 109 H Carbon Dioxide 25 BUN 10 Creatinine 0.52 L Glucose 96 Calcium 8.8 Liver Function 10/06/17 Range/Units 05:01 Total Bilirubin 0.3 (0.3-1.0) mg/dL AST 22 (13-39) Units/L ALT 29 (7-52) Units/L Alkaline Phosphatase 73 (34-104) Units/L Albumin 3.8 (3.5-5.7) g/dL Consult Discharge Plan - Plan Referrals: Grace Medellin, MULTIMEDIA ENGINEER [Primary Care Provider] -
[2017-10-06 19:41] LABS: Bilirubin,Urine Negative (Negative); Blood,Urine Negative (Negative); Clarity,Urine Clear (Clear); Color,Urine Yellow (Yellow); Glucose,Urine (UA) Normal (Normal); Ketones,Urine Negative (Negative); Leukocyte Esterase,Urine Negative (Negative); Nitrite,Urine Negative (Negative); PH,Urine 7.5 pH Units (5.0-8.0); Protein,Urine Negative (Neg-Trace); Specific Gravity,Urine 1.013 (1.010-1.025); Urobilinogen,Urine Normal (Normal)
[2017-10-07] MEDS: Piperacillin/Tazobactam 3.375 GM in 0.9 % Sodium Chloride Mini Bag 100 ML IVPB SCH (04:51)
[2017-10-07 06:23] LABS: Basophils % 0.4 %; Eosinophils # 0.3 K/mcL (0.0-0.6); Eosinophils % 4.3 %; Hematocrit 33.5 % (35.3-44.9); Hemoglobin 11.1 g/dL (11.5-15.4); Immature Granulocytes % 0.3 % (0-4); Lymphocytes # 2.5 K/mcL (0.6-4.6); Mean Corpuscular HGB Conc 33.1 g/dL (31.6-35.5); Mean Corpuscular Hemoglobin 27.6 pg (28.0-33.3); Mean Corpuscular Volume 83.3 fL (83.0-100.0); Mean Platelet Volume 9.3 fL (9.4-12.4); Monocytes # 0.5 K/mcL (0.0-1.3); Monocytes % 6.2 %; Neutrophils # 4.5 K/mcL (1.6-8.9); Platelet Count 280 K/mcL (140-400); Red Blood Count 4.02 M/mcL (3.82-4.97); Red Cell Distribution Width 12.7 % (11.5-14.5); Segmented Neutrophils % 56.8 %
[2017-10-07] MEDS: *HR* Enoxaparin 40 MG/0.4 ML SYRINGE SQ SCH (06:27)
[2017-10-07 06:41] LABS: Alanine Aminotransferase 32 Units/L (7-52); Albumin 3.6 g/dL (3.5-5.7); Albumin/Globulin Ratio 1.1 (1.1-2.2); Alkaline Phosphatase 68 Units/L (34-104); Aspartate Amino Transferase 23 Units/L (13-39); BUN/Creatinine Ratio 16 (6-26); Bilirubin,Total 0.4 mg/dL (0.3-1.0); Blood Urea Nitrogen 9 mg/dL (6-20); Calcium 8.6 mg/dL (8.6-10.3); Carbon Dioxide 25 mEq/L (23-29); Chloride 108 mEq/L (98-107); Globulin 3.4 g/dL (2.4-3.5); Glucose 98 mg/dL (70-105); Osmolality,Calculated 287 (280-300); Potassium 3.4 mEq/L (3.5-5.1); Sodium 139 mEq/L (136-145); eGFR For African Americans > 60 (> 60); eGFR For Non-African Americans > 60 (> 60)
[2017-10-07 07:15] VITALS: BP 91/53
--- NOTE | 2017-10-07 10:32 | Discharge Summary ---
Orders not resulted at time of discharge: Pending orders 10/06/17 11:21 Anti-Streptolysin O Antibody Stat Date of Encounter: 10/07/17 Time of Encounter: 08:55 - Discharge Diagnosis (1) Sepsis Priority: Primary Status: Acute Comments: Leukocytosis has resolved, pt has been afebrile for > 36 hours. Pt is hypotensive, but at her baseline. Still unclear etiology, however tonsillitis/pharyngitis is most likely. Rapid strep negative. Flu negative. Blood cultures negative x 2. Urine culture unavailable, but pt denies symptoms. She was initially treated with IV Vanco and Zosyn. Pt is and had 2 episodes of gabino syndrome, Vanco was discontinued. She received 3 doses of Zosyn which was also discontinued. Chest xray is negative. Centor score of 4 with rapid strep negative, will treat empirically with PenV. Qualifiers: Sepsis type: sepsis due to unspecified organism Qualified Code(s): A41.9 - Sepsis, unspecified organism (2) Dizziness Priority: Secondary Status: Acute Comments: Pt states that she is better, denies dizziness. I have encouraged pt to drink plenty of fluids and stand slowly from sitting and lying. (3) UTI (urinary tract infection) Priority: Secondary Status: Suspected Comments: Initial urine was not cultured, she continues to deny urinary complaints. Retroperitoneal US unremarkable. IV antibiotics have been discontinued. Repeat urine negative. Qualifiers: Urinary tract infection type: acute cystitis Hematuria presence: without hematuria Qualified Code(s): N30.00 - Acute cystitis without hematuria (4) Hypotension Priority: Secondary Status: Chronic Comments: Pt with SBP consistently at or below 90, this appears to be pt's baseline, not concerning due to age and level of activity. I have encouraged pt to maintain adequate hydration and be careful when standing from sitting or lying. Qualifiers: Hypotension type: unspecified hypotension type Qualified Code(s): I95.9 - Hypotension, unspecified (5) DVT prophylaxis Priority: Secondary Status: Acute Comments: Lovenox. Hospital course: Ms. Wharton is a 31 year old female with no significant prior medical history who presented to the ED with c/o sore throat, fever, chills, urinary symptoms, and body aches. Pt was initially treated for UTI/Sepsis with IV Vancomycin and Zosyn. With 2 initial doses of Vanco, pt had gabino syndrome that was treated with Benadryl and Pepcid. It was d/c'd and Zosyn was continued. Pt is currently and was warned about damaging 's gut bacteria with the IV antibiotics. Her leukocytosis resolved, however, she still had intermittent fevers and was denying cough, sore throat, urinary symptoms, etc. Chest xray was negative, throat culture was ordered, but cancelled. ID was consulted and they felt the cause was tonsillitis/pharyngitis, Centor score of 4 with negative rapid strep test. Pt will be sent home with PenVK 500mg po bid x 10 days, Cepacol lozenges, and ibuprofen for pain/fever. Pt's labs and vitals have returned to normal, pt's baseline BP appears to be hypotensive. Pt states that she feels better and is ready to go home. She is stable and appropriate for discharge. Discharge discussed with: patient, family - Time Spent with Patient Total time spent providing and/or coordinating discharge services: Less than 30 minutes - Discharge Medications Prescriptions: Ibuprofen [Motrin] 400 mg PO Q6HR PRN #20 tablet PRN Reason: Mild Pain/Fever Benzocaine/Menthol Rahul [Cepacol Sore Throat Lozenge] 1 each MM Q2H #60 lozenge Penicillin VK 500 mg PO BID #20 tablet Home Medications: Benzocaine/Menthol Rahul [Cepacol Sore Throat Lozenge] 1 each MM Q2H #60 lozenge 10/07/17 [Rx] Ibuprofen [Motrin] 400 mg PO Q6HR PRN #20 tablet 10/07/17 [Rx] Penicillin VK 500 mg PO BID #20 tablet 10/07/17 [Rx] Allergies/Adverse Reactions: 3 Allergy/AdvReac Type Severity Reaction Status Date / Time No Known Allergies Allergy Verified 10/04/17 14:06 Date of admission: 10/05/17 14:32 Primary care physician: Grace Medellin CNP Consults: 10/05/17 16:26 Consult to Expander Machine Operator [CONS] Routine Comment: 10/06/17 07:20 Consult to Infectious Diseases [CONS] Routine Consulting Provider: Infectious Disease [place] Reason for Consult: Fever, aches, leukocytosis (resolved). Pt received Vanco , Zosyn. Vanco d/cd d/t gabino syndrome. Zosyn continued. Unknown source of infection , fever overnight. Call Completed: No Discharging clinician: Betty Watt Anticipated date of discharge: 10/07/17 - Constitutional Vitals: Temp Pulse Resp BP Pulse Ox 97.9 F 80 16 91/53 95 10/07/17 07:14 10/07/17 07:14 10/07/17 07:14 10/07/17 07:14 10/07/17 07:14 General appearance: Present: cooperative, mild distress, A&O X 3, pleasant, no acute distress, obese, answers questions appropriately - Head Head exam: Present: atraumatic, normal inspection, normocephalic - Eye Eye exam: Present: normal appearance, conjuntiva pink, sclera anicteric - Neck Neck exam general surgery: Present: supple, trachea midline. Absent: lymphadenopathy - Respiratory Respiratory exam: Present: CTAB. Absent: accessory muscle use, chest wall tenderness, decreased breath sounds, rales, respiratory distress, rhonchi, wheezes - Cardiovascular Cardiovascular exam: Present: RRR, +S1, +S2. Absent: diastolic murmur, gallop, rubs, systolic murmur - GI/Abdominal GI/Abdominal exam: Present: normal bowel sounds, soft. Absent: distended, hepatomegaly, tenderness - Extremities Exam Extremities exam: Present: normal capillary refill, normal inspection, warm, radial pulses palpable and symmetrical. Absent: calf tenderness, cyanotic, pedal edema, tenderness - Neurological Exam Neurological exam: Present: alert, oriented X3, no focal deficits. Absent: facial droop, speech deficit - Skin Skin exam: Present: dry, intact, normal color, warm. Absent: rash - Patient Status Disposition: Home, Self-Care Condition: Good Functional capacity at discharge: independent ambulation Overall status at discharge: patient is progressing back to baseline - Discharge Instructions Follow Up With: Grace Medellin, EXTRACTIONS TECHNICIAN [Primary Care Provider] - Additional Instructions: I have called in your prescriptions to [facility]. Penicillin VK may be used while breatfeeding, no known risk of infant harm, though possible risk of diarrhea, rash, itching, thrush, and increased sleepiness. Drink plenty of fluids, eat a healthy diet, and stay inside for a few days. Return to the ER as needed for any other problems or concerns, or if your symptoms return or worsen. Follow up with your PCP in the next 7-10 days for a recheck. Return to your normal activities as tolerated. - Diet and Activity Activity: increase activity as tolerated Diet: advance to your usual diet
--- NOTE | 2017-10-10 08:10 | Electrocardiograph Report ---
[place] [id number] Test Date: 2017-10-04 Pat Name: Arcelia Wharton Department: 115 Room: 3B Gender: F Document Review Specialist: SHERITA : 1985 Requested By: Yonny Murillo Order Number: [id number] Reading MD: Jimbo Pereira DO Measurements Intervals [place] Rate: 100 P: 30 PA: 157 QRS: 66 QRSD: 103 T: 72 QT: 351 QTc: 408 Interpretive Statements SINUS TACHYCARDIA NONSPECIFIC T-WAVE ABNORMALITY Electronically Signed On 10-10-2017 8:04:56 EDT by Jimbo Pereira DO
== END 2017-10-07 11:52 | disposition home or self-care (01) | DRG 872 ==
LOC: EMEROO 11:30 → 3ANU 11:30 → 3BNU 18:36
PROVIDERS: ADMIT Student in an Organized Health Care Education/Training Program; ATTEND Hospitalist